=== PATIENT | female | born 1950 | race Caucasian/White ===

== ENCOUNTER 2022-10-07 10:41 | Outpatient (AMB) | payer MEDICARE, SELFPAY ==
--- NOTE | 2022-10-07 10:48 | MHC.OFFVIS ---
Intake Vital Signs 10/07/22 11:08 Height 4 ft 11 in Weight 158 lb BMI 31.9 BP 130/70 Blood Pressure Location Lt brachial Position Sitting Pulse 82 Pulse Oximetry (%) 97 Intake Visit Reasons: Abnormal PET Allergies codeine Allergy (Unknown, Verified 10/07/22 11:12) Unknown zpack Allergy (Unknown, Uncoded 10/07/22 11:12) Unknown Medication List - Last Reconciled 10/07/22 by Babatunde Ballesteros MD diltiazem HCl ER 180 mg PO DAILY escitalopram oxalate 20 mg PO DAILY levothyroxine 88 mcg PO DAILY lisinopril 5 mg PO DAILY lorazepam 0.5 mg PO DAILY PRN metformin 500 mg PO DAILY metoprolol succinate ER 50 mg PO DAILY rivaroxaban (Xarelto) 20 mg PO DAILY rosuvastatin 5 mg PO DAILY HPI Abnormal PET HPI Details 71-year-old woman nonsmoker never smoker who had a poor seen valve placed for aortic stenosis in 2010 at [facility]. She is followed by Dr. Falcon in Cardiology and recently had developed worsening shortness of breath with activity. Unfortunately, she had does developed poor seen valve aortic stenosis now with high gradient in the relatively severe category. She was being evaluated for either redo aortic valve replacement versus TAVR and had a CT scan of the chest done as part of that workup in 07/19/2022. This was reviewed interpreted by me directly and shows a 1.9 cm partially spiculated pulmonary nodule medially and somewhat centrally in the right lower lobe. On that CT scan as well there was borderline enlarged right paratracheal and subcarinal lymph nodes with but does appear to be normal architecture. She eventually then had a PET scan done on 09/27/2022 which was also reviewed and interpreted by me directly this was done at [facility] which shows the pulmonary nodule in question to have an increased SUV of 3.8 without increased uptake anywhere else in the chest or outside of the chest. She reports therapeutic which a weight loss decreased appetite fevers chills or soaking sweats. She denies chest pain cough or hemoptysis. She does have some shortness of breath with activity. She denies any new neurologic symptoms. Of note, she does have atrial fibrillation as well and is on Xarelto for that. Other than above, 12 point review of systems was done and documented separately in the office chart with detailed social and family history. Physical Exam Vital Signs: Last Vital Signs Pulse 82 10/07/22 11:08 BP 130/70 10/07/22 11:08 Pulse Ox 97 10/07/22 11:08 BMI result Body Mass Index 31.9 General: No acute distress HEENT: Moist mucous membranes, normocephalic, pupils equal round and reactive to light. Neck: No thyromegaly, supple, no JVD Lymph: No cervical, supraclavicular, or other lymphadenopathy Chest: No chest wall abnormalities or deformities Heart: Regular rate and rhythm Lungs: Clear to auscultation bilaterally Abdomen: Soft, nontender, normal bowel sounds Extremities: No edema, cyanosis, or clubbing. Full range of motion Neuro: Grossly intact, alert and oriented x3, and nonfocal Skin: Warm and dry no rashes Affect: Normal Assessment & Plan Assessment & Plan (1) Pulmonary nodule: Code(s): R91.1 - Solitary pulmonary nodule Plan: 71-year-old woman being evaluated for a redo aortic valve versus TAVR procedure due to a stenotic poor seen aortic valve. CT scan shows a suspicious pulmonary nodule measuring 1.9 cm and PET scan shows increased uptake in that nodule and not elsewhere. This is a clinical stage I lung cancer until proven otherwise. Given that she has a pending TAVR procedure likely and its anatomic location which is not wedgeable. I think the next best step is to do a navigational bronchoscopy with biopsy and endobronchial ultrasound for diagnostic and staging purposes. This can be done at the same time but does require general anesthesia. We will arrange for her to have a risk assessment for general anesthesia by her senior contracts administrator next week and the plan tentatively is for navigational bronchoscopy with biopsy and EBUS next . She will need to stop her Xarelto for 2 days prior. I did spend some time discussing pulmonary nodules in general with her and her brother who is with her today. We discussed how the size, shape, and private branch exchange installer time can affect her level of suspicion for malignancy. We also discussed the diagnosis, staging, and treatment of lung cancer which he seemed understand. If indeed this is a lung cancer which I think is likely that her options will either be surgery which he may not tolerate with aortic stenosis versus stereotactic radiation as long as none of the lymph nodes are positive on the endobronchial ultrasound. Of note, the mediastinal nodes are not PET avid but they are borderline enlarged on the CT scan and this nodule is somewhat central. All questions were answered. I will also start the ball rolling and by referring her to Radiation Oncology today as well. (2) Aortic stenosis: Code(s): I35.0 - Nonrheumatic aortic (valve) stenosis (3) H/O aortic valve replacement: Code(s): Z95.2 - Presence of prosthetic heart valve (4) Atrial fibrillation: Code(s): I48.91 - Unspecified atrial fibrillation Plan: Hold Xarelto 2 days prior to surgery/biopsy Orders: Referrals Radiation Oncology Referral R91.1 - Solitary pulmonary nodule Coding Level of Care Code New Pt Level 5 (18038) Diagnoses Pulmonary nodule R91.1 Aortic stenosis I35.0 H/O aortic valve replacement Z95.2 Atrial fibrillation I48.91
[2022-10-07 11:08] VITALS: BP 130/70; PULSE 82; O2SAT 97; BMI 31.9
== END 2022-10-07 11:45 | disposition home or self-care (01) ==
PROVIDERS: PCP Internal Medicine; Visit Provider Surgery
DX: R91.1 Solitary pulmonary nodule (principal); I35.0 Nonrheumatic aortic (valve) stenosis; Z95.2 Presence of prosthetic heart valve; I48.91 Unspecified atrial fibrillation

== ENCOUNTER → 2022-10-07 10:41 | Outpatient (BNVA) | payer MEDICARE, SELFPAY | PROVIDERS: PCP Internal Medicine; Visit Provider Surgery | DX: R91.1 Solitary pulmonary nodule (principal); I35.0 Nonrheumatic aortic (valve) stenosis; I48.91 Unspecified atrial fibrillation; Z95.2 Presence of prosthetic heart valve | CPT/HCPCS: 99202 ==

== ENCOUNTER 2022-10-21 09:52 | Outpatient (AMB) | payer MEDICARE, SELFPAY ==
--- NOTE | 2022-10-21 10:02 | A.OFFVIS_ITS ---
Intake Vital Signs 10/21/22 10:07 Height 4 ft 11 in Weight 158 lb BMI 31.9 BP 120/70 Blood Pressure Location Lt brachial Position Sitting Pulse 71 Pulse Oximetry (%) 96 Intake Visit Reasons: Post Bronchoscopy Allergies codeine Allergy (Unknown, Verified 10/21/22 10:08) Unknown zpack Allergy (Unknown, Uncoded 10/07/22 11:12) Unknown Medication List - Last Reconciled 10/21/22 by Babatunde Ballesteros MD diltiazem HCl ER 180 mg PO DAILY escitalopram oxalate 20 mg PO DAILY levothyroxine 88 mcg PO DAILY lisinopril 5 mg PO DAILY lorazepam 0.5 mg PO DAILY PRN metformin 500 mg PO DAILY metoprolol succinate ER 50 mg PO DAILY rivaroxaban (Xarelto) 20 mg PO DAILY rosuvastatin 5 mg PO DAILY HPI Post Bronchoscopy HPI Details 71-year-old woman nonsmoker never smoker who had a poor seen valve placed for aortic stenosis in 2010 at [facility]. She is followed by Dr. Falcon in Cardiology and recently had developed worsening shortness of breath with activity. Unfortunately, she had does developed poor seen valve aortic stenosis now with high gradient in the relatively severe category. She was being evaluated for either redo aortic valve replacement versus TAVR and had a CT scan of the chest done as part of that workup in 07/19/2022. This was reviewed interpreted by me directly and shows a 1.9 cm partially spiculated pulmonary nodule medially and somewhat centrally in the right lower lobe. On that CT scan as well there was borderline enlarged right paratracheal and subcarinal lymph nodes with but does appear to be normal architecture. She eventually then had a PET scan done on 09/27/2022 which was also reviewed and interpreted by me directly this was done at [facility] which shows the pulmonary nodule in question to have an increased SUV of 3.8 without increased uptake anywhere else in the chest or outside of the chest. She had navigational bronchoscopy done and endobronchial ultrasound for diagnostic and staging purposes which she tolerated well without pain worsening shortness of breath or hemoptysis. This was done on 10/15/2022 pathology from the endobronchial ultrasound was good sampling of all 3 stations in the mediastinum with no malignancy identified. Unfortunately navigational FNA of the nodule as well as brushings and washings were nondiagnostic. I did explain to them that this essentially with the PET scan rules out stage III and 4 disease if this indeed is a cancer. She reports therapeutic which a weight loss decreased appetite fevers chills or soaking sweats. She denies chest pain cough or hemoptysis. She does have some shortness of breath with activity. She denies any new neurologic symptoms. Of note, she does have atrial fibrillation as well and is on Xarelto for that. Other than above, 12 point review of systems was done and documented separately in the office chart with detailed social and family history. [facility] Medical History Hypothyroid Hyperlipemia Hypertension Type 2 diabetes mellitus On anticoagulant therapy Atrial fibrillation Aortic stenosis Pulmonary nodule Surgical History History of aortic valve repair (~2010) Physical Exam Vital Signs: Last Vital Signs Pulse 71 10/21/22 10:07 BP 120/70 10/21/22 10:07 Pulse Ox 96 10/21/22 10:07 BMI result Body Mass Index 31.9 General: No acute distress HEENT: Moist mucous membranes, normocephalic, pupils equal round and reactive to light. Neck: No thyromegaly, supple, no JVD Lymph: No cervical, supraclavicular, or other lymphadenopathy Chest: No chest wall abnormalities or deformities Heart: Regular rate and rhythm Lungs: Clear to auscultation bilaterally Abdomen: Soft, nontender, normal bowel sounds Extremities: No edema, cyanosis, or clubbing. Full range of motion Neuro: Grossly intact, alert and oriented x3, and nonfocal Skin: Warm and dry no rashes Affect: Normal Assessment & Plan Assessment & Plan (1) Pulmonary nodule: Comment: (1.9cm spiculated RLL nodule - suv max 3.8 on PET) Code(s): R91.1 - Solitary pulmonary nodule Plan: 71-year-old woman with suspicious clinical stage I lung cancer and poor seen valve aortic stenosis being evaluated for a TAVR valve in valve procedure when the nodule was noted. I again went over the diagnostic testing she has had with her and her family including the CT scan and PET scan in some detail. We again talked about the diagnosis, staging, and treatment of lung cancer which they seemed understand. I also went over the pathology findings from the navigational bronchoscopy and endobronchial ultrasound which essentially rule out stage III disease however unfortunately was nondiagnostic in the FNA of the nodule itself. With regards to a plan moving forward for her would plan on doing an interventional radiology CT-guided biopsy at [facility] if they think they can do it and she already has an appointment with Radiation Oncology at [facility] next week. I discussed with them potential scenarios if this is diagnosed with CT-guided biopsy as a malignancy the options would be stereotactic radiation or surgery but I think more likely stereotactic radiation given her valve disease. If we still can not get a diagnosis or Interventional Radiology cannot biopsy this, will discuss with Radiation Oncology as to whether to give stereotactic radiation without a diagnosis in this particular situation. (2) Aortic stenosis: Comment: (s/p porcine valve 2010 now of valve - being evaluated for replacement vs TAVR - Dr. Falcon) Code(s): I35.0 - Nonrheumatic aortic (valve) stenosis Coding Level of Care Code Est Pt Level 5 (05548) Diagnoses Pulmonary nodule R91.1 Aortic stenosis I35.0
[2022-10-21 10:07] VITALS: BP 120/70; PULSE 71; O2SAT 96; BMI 31.9
== END 2022-10-21 10:32 | disposition home or self-care (01) ==
PROVIDERS: PCP Internal Medicine; Visit Provider Surgery
DX: R91.1 Solitary pulmonary nodule (principal); I35.0 Nonrheumatic aortic (valve) stenosis

== ENCOUNTER → 2022-10-21 09:52 | Outpatient (BNVA) | payer MEDICARE, SELFPAY | PROVIDERS: PCP Internal Medicine; Visit Provider Surgery | DX: R91.1 Solitary pulmonary nodule (principal); I35.0 Nonrheumatic aortic (valve) stenosis; Z95.3 Presence of xenogenic heart valve | CPT/HCPCS: 99212 ==